=== PATIENT | male | born 1955 | race Caucasian/White ===

== ENCOUNTER 2018-04-13 10:10 | Day surgery (SDC) | payer BC ==
[~2018-04-13] VITALS: Ht 165.1 cm; Wt 90.7 kg
[~2018-04-13 10:10] MED LIST: ACID REDUCER150 MG PO; ADULT ASPIRIN81 MG PO; ASPIRIN81 M1 PO; AVODART0.5 MG PO; CRESTOR20 MG PO; CYMBALTA30 MG PO; FLOMAX0.4 MG PO; GLUCOPHAGE1000 MG PO; LANTUS 3 M100 UNITS/ PO; LANTUS 3 M100 UNITS1 SC; LITE COAT ASPI325 M1 PO; LOPRESSOR25 MG PO; NEURONTIN100 MG PO; NORVASC5 MG PO; NOVOLOG PE100 UNITS/ SC; PERCOCET 5/31 TABLET PO; PROMETHAZINE HC25 M1 PO; PROTONIX40 MG PO; QUINIDINE SULF200 MG PO; ULTRAM50 MG PO; VITAMIN B COMP1 EACH PO; VITAMIN D35000 UNIT PO
== END 2018-04-13 17:30 | disposition home or self-care (01) ==
LOC: CATH 10:10
PROVIDERS: Internal Medicine Cardiovascular Disease
DX: I25.10 Atherosclerotic heart disease of native coronary artery without angina pectoris (principal); I25.810 Atherosclerosis of coronary artery bypass graft(s) without angina pectoris; I25.82 Chronic total occlusion of coronary artery; I25.5 Ischemic cardiomyopathy; I10 Essential (primary) hypertension; E78.2 Mixed hyperlipidemia; E11.9 Type 2 diabetes mellitus without complications; Z87.891 Personal history of nicotine dependence; Z79.4 Long term (current) use of insulin; Z88.5 Allergy status to narcotic agent
CPT/HCPCS: 82948; 93005; C1769; C1887; C1894; J1644; J2250; J3010